=== PATIENT | female | born 1970 | race Caucasian/White ===

== ENCOUNTER 2018-05-31 16:14 | Emergency (ER) | payer SELFPAY ==
[~2018-05-31] VITALS: Ht 166.4 cm; Wt 108.9 kg
[2018-05-31] MEDS ORDERED: KETOROLAC TROMETHAMINE 60 MG/2 ML VIAL IM STA (16:28)
[2018-05-31] MEDS ORDERED: CYCLOBENZAPRINE HCL 10 MG TAB PO ONE (16:30)
[2018-05-31] MEDS ORDERED: LABETALOL HCL 5 MG/ML 20ML VIAL IV STA (17:28)
--- NOTE | 2018-05-31 17:33 | Diagnostic Imaging Report ---
History:L ear pain Comparison studies: None Technique: Axial images were obtained from the skull base to the vertex. Coronal and sagittal reconstructions obtained from the axial data. Dose modulation, iterative reconstruction, and/or weight based adjustment of the mA/kV was utilized to reduce the radiation dose to as low as reasonably achievable. Findings: Scalp/skull: No abnormalities. No fractures, blastic or lytic lesions. Extra-axial spaces: No masses. No fluid collections. Brain sulci: Appropriate for age. Ventricles: Normal in size and configuration. No hydrocephalus. Parenchyma: No abnormal densities. No masses, hemorrhage, acute or chronic cortical vascular insults. Sellar/suprasellar region: No abnormalities Craniocervical junction: Patent foramen magnum. No Chiari one malformation. Partial opacification of lower most mastoid air cells, and IMPRESSION: No intracranial abnormalities . Signed by: DR Paramjit Melgoza M.D. on 05/31/2018 5:29 PM
[2018-05-31 17:34] LABS: BASOPHILS # (AUTO) 0.1 (0.0-0.1); BASOPHILS % 0.4 % (0.0-1.0); EOSINOPHILS # (AUTO) 0.5 (0.0-0.4); HEMATOCRIT 45.5 % (34.2-44.1); LYMPHOCYTES # (AUTO) 2.6 (1.0-3.2); LYMPHOCYTES % 15.4 % (18.0-39.1); MEAN CORPUSCULAR HEMOGLOBIN 29.9 pg (28-32); MEAN CORPUSCULAR VOLUME 90.8 fL (81-99); MONOCYTES # (AUTO) 1.3 (0.2-0.8); MONOCYTES % 7.8 % (4.4-11.3); NEUTROPHILS % 72.9 % (38.7-80.0); PLATELET COUNT 567 x10e3/uL (140-360); RED BLOOD COUNT 5.01 x10e6/uL (3.6-5.1); RED CELL DISTRIBUTION WIDTH 14.1 % (11.7-14.4)
[2018-05-31 17:51] LABS: ALBUMIN 4.5 g/dL (3.5-5.0); ALBUMIN/GLOBULIN RATIO 1.1 (0.8-2.0); CALCIUM 10.8 mg/dL (8.4-10.2); POTASSIUM 3.8 mmol/L (3.5-5.1)
[2018-05-31 18:14] LABS: ANION GAP 7.8 mmol/L (8-16)
[2018-05-31] MEDS ORDERED: CYMBALTA30 MG PO (18:48)
[2018-05-31] MEDS ORDERED: LITHIUM CARBON300 MG PO (18:48)
== END 2018-05-31 20:22 | disposition home or self-care (01) ==
LOC: ER 16:14
DX: G44.211 Episodic tension-type headache, intractable (principal); I10 Essential (primary) hypertension; D72.829 Elevated white blood cell count, unspecified; F31.9 Bipolar disorder, unspecified
CPT/HCPCS: 36415; 70450; 80053; 85025; 99283; J1885; J3490